=== PATIENT | male | born 1975 | race Caucasian/White ===

== ENCOUNTER 2017-12-23 20:26 | Emergency (ER) | payer OTHER ==
[2017-12-23 20:37] VITALS: PULSE 73; TEMP 98.2; BMI 26.4
--- NOTE | 2017-12-23 20:43 | PDOC ---
History of Present Illness - General History Source: Patient Exam Limitations: No Limitations - History of Present Illness Initial Comments: 12/23/17 21:35 The patient is a 42 year old male, with no significant past medical history who presents to the emergency department with persistent diarrhea for 3 days. The patient reports that his diarrhea began friday morning at 4 am. He reports frequent trips to the restroom between 2-3 times a day. The patient report taking Imodium intermittently since friday but states that it provided no relief. The patient denied any blood in his stool. The patient also reports taking his temperature at home by which the reading was 101.6. The patient denies any other complaints. He denies any fever, chills, nausea, or vomit. He denies any headache or dizziness. PAST MEDICAL HISTORY: no significant history PAST SURGICAL HISTORY: no significant history FAMILY HISTORY: no pertinent history SOCIAL HISTORY: none reported MEDICATIONS: no known medications ALLERGIES: no known allergies General: No fevers or chills, no weakness, no weight loss HEENT: No change in vision. No sore throat,. No ear pain CardioVascular: No chest pain or shortness of breath Respiratory:No cough, or wheezing. Gastrointestinal: (+) diarrhea. No nausea, vomiting, or constipation, No rectal bleeding Genitourinary: No dysuria, hematuria, or frequency Musculoskeletal: No joint or muscle pain or swelling Neurologic: No headache, vertigo, dizziness or loss of consciousness Psychiatric: nor depression Skin: No rashes or easy bruising Endocrine: no increased thirst or abnormal weight change Allergic: no skin or latex allergy All other systems reviewed and normal General: Well-nourished well-developed individual, no acute distress HEENT: Throat: Normal, tonsils normal, no erythema or exudate Neck: Supple, no meningeal signs, no lymphadenopathy Eyes::Pupils equal reactive and round, extraocular motion intact Chest: Nontender to palpation Cardiac: S1-S2 normal, regular rate and rhythm, no murmurs rubs or gallops Respiratory: Lungs clear to auscultation bilateral Abdomen: (+) Belly mildly distended. Soft, normal bowel sounds, nontender to palpation diffusely Extremities: Warm, dry, no cyanosis, clubbing, or edema Skin: No rashes Neuro: Alert and oriented x3, nonfocal exam, grossly intact, normal gait Psych: Normal mood and affect <Jose Juan,Collisia - Last Filed: 12/23/17 21:34> - General History Source: Patient Exam Limitations: No Limitations - History of Present Illness Initial Comments: 12/23/17 21:37 A portion of this note was documented by scribe services under my direction. I have reviewed the details of the note, within reason, and agree with the documentation. The case summary and management plan written by me. Medical decision making: This is a 42-year-old male who comes in complaining of diarrhea times several days. Patient had eaten raw oysters prior to the diarrhea. Patient denied any fevers. Patient had a normal exam with the exception of some mild distention of the abdomen otherwise it was nontender with normal bowel sounds. We'll hydrate patient with a liter normal saline and send off a CBC and comp. CBC shows an elevated white count we will go ahead and start the patient on Cipro otherwise if it is normal well have patient continue with staying hydrated and taking some additional Imodium. 12/23/17 22:01 Reevaluation patient has had no further diarrhea here in the emergency room. The lab is unable to do the CBC because her machine is down so it had to be sent over to the other campus patient does not want to wait for the results. Will start patient on some Cipro as it is been going on for several days. Patient discharged home. Given first dose of Cipro here <Yee Scruggs I - Last Filed: 12/23/17 22:06> - General Chief Complaint: Diarrhea Stated Complaint: DIARRHEA X 3 DAYS Time Seen by Provider: 12/23/17 20:29 Past History <Kyler Manzano - Last Filed: 12/23/17 21:34> - Past Medical History COPD: No Other medical history: DENIES - Suicide/Smoking/Psychosocial Hx Smoking History: Never smoked Have you smoked in the past 12 months: No Information on smoking cessation initiated: No Hx Alcohol Use: Yes (ONCE A WEEK) Drug/Substance Use Hx: No Substance Use Type: None <Yee Scruggs I - Last Filed: 12/23/17 22:06> - Past Medical History Allergies/Adverse Reactions: Allergies Allergy/AdvReac Type Severity Reaction Status Date / Time No Known Allergies Allergy Verified 12/23/17 20:31 Home Medications: Ambulatory Orders Ciprofloxacin HCl [Cipro] 500 mg PO BID #10 tablet 12/23/17 *Physical Exam - Vital Signs Last Vital Signs Temp Pulse Resp BP Pulse Ox 98.2 F 73 16 167/108 100 12/23/17 20:32 12/23/17 20:32 12/23/17 20:32 12/23/17 20:32 12/23/17 20:32 <Kyler Manzano - Last Filed: 12/23/17 21:34> - Vital Signs Last Vital Signs Temp Pulse Resp BP Pulse Ox 98.2 F 73 16 167/108 100 12/23/17 20:32 12/23/17 20:32 12/23/17 20:32 12/23/17 20:32 12/23/17 20:32 <Yee Scruggs I - Last Filed: 12/23/17 22:06> ED Treatment Course - LABORATORY CBC & Chemistry Diagram: 12/23/17 20:50 12/23/17 20:50 <Kyler Manzano - Last Filed: 12/23/17 21:34> - LABORATORY CBC & Chemistry Diagram: 12/23/17 20:50 12/23/17 20:50 <Yee Scruggs I - Last Filed: 12/23/17 22:06> *DC/Admit/Observation/Transfer - Attestations Scribe Attestion: 12/23/17 21:36 Documentation prepared by Kyler Manzano, acting as emergency medical services coordinator for Yee Scruggs MD <Kyler Manzano - Last Filed: 12/23/17 21:34> - Discharge Dispostion Admit: No <Yee Scruggs I - Last Filed: 12/23/17 22:06> Diagnosis at time of Disposition: Diarrhea - Discharge Dispostion Disposition: HOME Condition at time of disposition: Stable - Prescriptions Prescriptions: Ciprofloxacin HCl [Cipro] 500 mg PO BID #10 tablet - Patient Instructions Additional Instructions: Take the ciprofloxacin 1 tablet twice a day for 5 days. In addition to that you can also take Imodium for the diarrhea as directed on the bottle. Return to the emergency department immediately with ANY new, persistent or worsening symptoms. Continue any medications as previously prescribed by your physician. You should follow up with your primary doctor as soon as possible regarding today's emergency department visit. . Please make sure your doctor reviews the results of your emergency evaluation. Thank you for coming to the Emergency Department today for your care. It was a pleasure to see you today. Please note that your evaluation is INCOMPLETE until you follow-up with your doctor.
[2017-12-23] MEDS ORDERED: SODIUM CHLORIDE 1,000 ML IV ONE (20:45)
[2017-12-23 21:23] LABS: ALBUMIN 3.9 g/dl (3.5-5.0); ALK PHOS 64 U/L (32-92); ANION GAP 7 (8-16); BILIRUBIN,TOTAL 0.5 mg/dl (0.2-1.0); BLOOD UREA NITROGEN 15 mg/dl (7-18); CALCIUM 8.5 mg/dl (8.4-10.2); CHLORIDE 104 mmol/L (98-107); CO2 26 mmol/L (22-28); CREATININE 0.9 mg/dl (0.6-1.3); GLUCOSE,RANDOM 112 mg/dl (74-106); SGOT/AST 57 U/L (10-42); SGPT/ALT 54 U/L (10-40); SODIUM 137 mmol/L (136-145); TOT PROT 6.8 g/dl (6.4-8.3)
[2017-12-23] MEDS ORDERED: CIPROFLOXACIN 250 MG TABLET (RESTRICTED TO ID) PO ONE (21:59)
[2017-12-23] MEDS ORDERED: CIPROFLOXACIN 500 MG TABLET (RESTRICTED TO ID) PO ONE (22:04)
[2017-12-23 22:08] VITALS: BP 143/98
[2017-12-23 22:12] LABS: BASO % 0.2 % (0-2.0); EOS % 1.6 % (0-4.5); HEMATOCRIT 43.4 % (35.4-49); HEMOGLOBIN 15.1 GM/dL (11.7-16.9); LYMPH % 9.5 % (8-40); MCH 30.7 pg (25.7-33.7); MCHC 34.7 g/dl (32.0-35.9); MEAN CELL VOLUME 88.3 fl (80-96); MEAN PLT VOLUME 9.7 fl (7.5-11.1); MONO % 2.7 % (3.8-10.2); PLATELET COUNT 124 K/MM3 (134-434); RBC 4.91 M/mm3 (4.00-5.60); RDW 13.7 % (11.9-15.9); WHITE BLOOD COUNT 6.6 K/mm3 (4.0-10.0)
== END 2017-12-23 22:12 | disposition home or self-care (01) ==
LOC: FER 20:26
PROC: 3E0337Z Introduction of Electrolytic and Water Balance Substance into Peripheral Vein, Percutaneous Approach (ICD-10-PCS; principal; 2017-12-23)
DX: R19.7 Diarrhea, unspecified (principal)
CPT/HCPCS: 36415; 80053; 85025; 99282-25; J7030

== ENCOUNTER 2018-05-10 08:38 | Emergency (ER) | payer OTHER ==
[2018-05-10 08:46] VITALS: BP 147/99; PULSE 58; TEMP 98.4; BMI 26.8
--- NOTE | 2018-05-10 08:59 | PDOC ---
History of Present Illness - General Chief Complaint: Laceration Stated Complaint: CUT LEFT INDEX FINGER WITH KNIFE Time Seen by Provider: 05/10/18 08:44 History Source: Patient Exam Limitations: No Limitations - History of Present Illness Initial Comments: 42 yo M no significant PMH presents with bleeding of the L index finger after cutting it while cooking. He states that he had sharpened knife, cut some onions and cut the tip of his finger and a piece of his nail. He applied pressure and a dressing, but it is still bleeding. No history of blood thinners. No other injuries. Tetanus booster not up to date. Past History - Past Medical History Allergies/Adverse Reactions: Allergies Allergy/AdvReac Type Severity Reaction Status Date / Time No Known Allergies Allergy Verified 05/10/18 08:40 COPD: No - Immunization History Immunization Up to Date: No - Suicide/Smoking/Psychosocial Hx Smoking History: Never smoked Have you smoked in the past 12 months: No Information on smoking cessation initiated: No Hx Alcohol Use: Yes (SOCIAL) Drug/Substance Use Hx: No Substance Use Type: None, Alcohol Review of Systems - Review of Systems Able to Perform ROS?: Yes Comments:: GENERAL/CONSTITUTIONAL: No fever or chills. No weakness. HEAD, EYES, EARS, NOSE AND THROAT: No change in vision. No ear pain or discharge. No sore throat. CARDIOVASCULAR: No chest pain or shortness of breath. RESPIRATORY: No cough, wheezing, or hemoptysis. GASTROINTESTINAL: No nausea, vomiting, diarrhea or constipation. GENITOURINARY: No dysuria, frequency, or change in urination. MUSCULOSKELETAL: No joint or muscle swelling or pain. No neck or back pain. SKIN: No rash. +Fingertip laceration. NEUROLOGIC: No headache, vertigo, loss of consciousness, or change in strength/ sensation. ENDOCRINE: No increased thirst. No abnormal weight change. HEMATOLOGIC/LYMPHATIC: No anemia, easy bleeding, or history of blood clots. ALLERGIC/IMMUNOLOGIC: No hives or skin allergy. *Physical Exam - Vital Signs Last Vital Signs Temp Pulse Resp BP Pulse Ox 98.4 F 58 L 16 147/99 100 05/10/18 08:39 05/10/18 08:39 05/10/18 08:39 05/10/18 08:39 05/10/18 08:39 - Physical Exam Comments: GENERAL: Awake, alert, and fully oriented, in no acute distress HEAD: No signs of trauma EXTREMITIES: L index finger with small avulsion to the tip of finger and nail. Actively oozing blood. Remainder of extremties with normal range of motion, no edema. No clubbing or cyanosis. No cords, erythema, or tenderness NEUROLOGICAL: Cranial nerves II through XII grossly intact. Normal speech, normal gait SKIN: Warm, Dry, normal turgor, no rashes. General Appearance: Yes: Nourished Medical Decision Making - Medical Decision Making 05/10/18 08:56 Small tourniquet applied to facilitate exam. Pt noted to have avulsion of small piece of fingertip. Will apply gelfoam and bulky dressing. *DC/Admit/Observation/Transfer Diagnosis at time of Disposition: Laceration - Discharge Dispostion Disposition: HOME Condition at time of disposition: Stable - Referrals - Patient Instructions Printed Discharge Instructions: DI for Avulsion Laceration (Not Requiring Sutures) Additional Instructions: Leave gel foam in place, do not disturb. Keep it covered with gauze until it is completely absorbed into your skin. Do not attempt to remove it. - Post Discharge Activity
[2018-05-10] MEDS ORDERED: DIPHTH,PERTUSS(ACELL),TET 0.5 ML DISP.SYRIN IM ONE (09:10)
== END 2018-05-10 09:51 | disposition home or self-care (01) ==
LOC: FER 08:38
PROC: 0HQGXZZ Repair Left Hand Skin, External Approach (ICD-10-PCS; principal; 2018-05-10)
PROC: 3E0234Z Introduction of Serum, Toxoid and Vaccine into Muscle, Percutaneous Approach (ICD-10-PCS; 2018-05-10)
DX: S61.211A Laceration without foreign body of left index finger without damage to nail, initial encounter (principal); W26.0XXA Contact with knife, initial encounter; Y93.G3 Activity, cooking and baking; Y92.9 Unspecified place or not applicable
CPT/HCPCS: 90715; 99281-25

== ENCOUNTER 2022-02-05 21:42 | Emergency (ER) | payer OTHER ==
[2022-02-05 22:33] VITALS: BP 126/93; PULSE 94; TEMP 98; BMI 27.3
== END 2022-02-05 22:42 | disposition home or self-care (01) ==
LOC: FER 21:42
DX: S80.861A Insect bite (nonvenomous), right lower leg, initial encounter (principal); W57.XXXA Bitten or stung by nonvenomous insect and other nonvenomous arthropods, initial encounter
CPT/HCPCS: 99281-25

== ENCOUNTER 2024-05-02 19:19 | Emergency (ER) | payer OTHER ==
[2024-05-02 19:29] VITALS: BP 155/101; PULSE 68; RESP 18; TEMP 98.6; BMI 26.0
[2024-05-02 20:18] LABS: HEMATOCRIT 50.4 % (35.4-49); HEMOGLOBIN 16.2 G/dL (11.7-16.9); MCH 28.4 pg (25.7-33.7); MCHC 32.1 g/dl (32.0-35.9); MEAN CELL VOLUME 88.2 fl (80-96); MEAN PLT VOLUME 9.3 fl (7.5-11.1); PLATELET COUNT 165.9 10^3/uL (134-434); RBC 5.71 10^6/uL (4.00-5.60); RDW 14.8 % (11.9-15.9); WHITE BLOOD COUNT 7.2 10^3/uL (4.0-10.8)
[2024-05-02] MEDS: DALBAVANCIN HCL 1,500 MG in DEXTROSE 5%-WATER - 500 ML IVPB ONE (20:25)
[2024-05-02 20:31] LABS: ALBUMIN 4.6 g/dl (3.4-5.0); ALK PHOS 73 U/L (45-117); ANION GAP 8 mmol/L (4-13); BILIRUBIN,TOTAL 0.7 mg/dl (0.2-1); CALCIUM 9.6 mg/dl (8.5-10.1); CHLORIDE 102 mmol/L (98-107); CO2 28 mmol/L (21-32); CREATININE 0.9 mg/dl (0.6-1.3); GLUCOSE,RANDOM 95 mg/dl (74-106); POTASSIUM 4.6 mmol/L (3.5-5.1); SGOT/AST 25 U/L (15-37); SGPT/ALT 37 U/L (7-52); SODIUM 138 mmol/L (136-145); TOT PROT 7.5 g/dl (6.4-8.2)
[2024-05-02 20:58] LABS: PLATELET ESTIMATE ADEQUATE
[2024-05-02 21:01] LABS: URIC ACID 6.4 mg/dl (2.6-7.2)
== END 2024-05-02 21:42 | disposition home or self-care (01) ==
LOC: FER 19:19
DX: L03.115 Cellulitis of right lower limb (principal)
CPT/HCPCS: 36415; 73630-TC-RT-FY; 80053; 84550; 85027; 85651; 86140; 99284-25; J0875